=== PATIENT | female | born 1995 | race Two or more races ===

== ENCOUNTER 2016-09-01 12:50 | Emergency (ER) | payer MEDICAID ==
--- NOTE | 2016-09-01 13:25 | EDM.PDOC ---
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 Is 17 weeks . She is under the care of Dr. Nguyen at [facility] [address]. This appointment was August 13, 2016. She first noticed the discharge on Friday morning when it was pinkish in color. It has become thicker and darker brown over the past 2 days. She's had some discomfort to the sides of her low abdomen which she describes as a cramping sensation. No blood in urine or with bowel movements. No bright red vaginal bleeding. No nausea or vomiting, fever or chills. ] Review of systems: As per history of present illness and below otherwise all systems reviewed and negative. Past medical history: As per history of present illness and as reviewed below otherwise noncontributory. Surgical history: As per history of present illness and as reviewed below otherwise noncontributory. Social history: No reported history of drug or alcohol abuse. Family history: As per history of present illness and as reviewed below otherwise noncontributory. Physical exam: HEENT: Atraumatic, normocephalic, pupils reactive, negative for conjunctival pallor or scleral icterus, mucous membranes moist, throat clear, neck supple, nontender, trachea midline. Lungs: Clear to auscultation, breath sounds equal bilaterally, chest nontender. Heart: S1S2, regular, negative for clicks, rubs, or JVD. Abdomen: Soft, appears small. heart tones 155. Abdomen is nondistended or tender with palpation. Negative for masses or hepatosplenomegaly. Negative for costovertebral tenderness. Pelvis: Stable nontender. Genitourinary: Normal-appearing introitus. Os is closed upon speculum exam. Moderate amount of dark brown thick discharge present. No liset blood. Rectal: Deferred. Extremities: Atraumatic. Neurovascular unremarkable. Neuro: Awake, alert, oriented. Motor and sensory unremarkable throughout. Exam nonfocal. Diagnostics: [CBC, CMP, urinalysis] Impression: [Vaginal discharge during ] Plan: [Discussed with patient that cervical os is closed and there is no evidence of miscarriage. Phone OB tomorrow and follow his instructions regarding followup. All patient's questions are answered and concerns are addressed.] Definitive disposition and diagnosis as appropriate pending reevaluation and review of above. 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 Musculoskeletal History: Reports: None Neurological History: Reports: None Psychiatric History: Reports: None Endocrine/Metabolic History: Reports: None Hematologic History: Reports: None Immunologic History: Reports: None Oncologic (Cancer) History: Reports: None Dermatologic History: Reports: None - Infectious Disease History Infectious Disease History: Reports: None - Past Surgical History Head Surgeries/Procedures: Reports: None Social & Family History - Family History Family Medical History: Noncontributory - Tobacco Use Smoking Status *Q: Never Smoker Second Hand Smoke Exposure: No - Caffeine Use Caffeine Use: Reports: None - Recreational Drug Use Recreational Drug Use: No ED ROS GENERAL - Review of Systems Review Of Systems: ROS reveals no pertinent complaints other than HPI. ED EXAM - Physical Exam Exam: See Below Course - Vital Signs Last Recorded V/S: Last Vital Signs Temp 98.1 F 09/01/16 12:53 Pulse 82 09/01/16 14:50 Resp 16 09/01/16 14:50 BP 112/56 L 09/01/16 14:50 Pulse Ox 98 09/01/16 14:50 - Orders/Labs/Meds Labs: Laboratory Tests 09/01/16 09/01/16 09/01/16 Range/Units 13:23 13:23 14:05 WBC 10.60 (4.0-11.0) K/uL RBC 3.52 L (4.30-5.90) M/uL Hgb 11.7 L (12.0-16.0) g/dL Hct 33.2 L (36.0-46.0) % MCV 94.3 (80.0-98.0) fL MCH 33.2 H (27.0-32.0) pg MCHC 35.2 (31.0-37.0) g/dL RDW Std Deviation 45.0 (28.0-62.0) fl RDW Coeff of Kita 13 (11.0-15.0) % Plt Count 215 (150-400) K/uL MPV 9.60 (7.40-12.00) fL Neut % (Auto) 73.3 (48.0-80.0) % Lymph % (Auto) 20.1 (16.0-40.0) % Walsh % (Auto) 5.8 (0.0-15.0) % Eos % (Auto) 0.5 (0.0-7.0) % Baso % (Auto) 0.3 (0.0-1.5) % Neut # 7.8 H (1.4-5.7) K/uL Lymph # 2.1 (0.6-2.4) K/uL Walsh # 0.6 (0.0-0.8) K/uL Eos # 0.1 (0.0-0.7) K/uL Baso # 0.0 (0.0-0.1) K/uL Nucleated RBC % 0.0 /100WBC Nucleated RBCs # 0 K/uL Sodium 137 (136-146) mmol/L Potassium 3.4 L (3.5-5.1) mmol/L Chloride 105 (98-110) mmol/L Carbon Dioxide 20 L (21-31) mmol/L BUN 7 (6.0-23.0) mg/dL Creatinine 0.6 (0.6-1.5) mg/dL Est Cr Clr Drug Dosing 115.69 mL/min Estimated GFR (MDRD) > 60.0 ml/min Glucose 80 (60-110) mg/dL Calcium 8.5 L (8.8-10.8) mg/dL Total Bilirubin 0.4 (0.1-1.5) mg/dL AST 23 (5-40) IU/L ALT 16 (8-54) IU/L Alkaline Phosphatase 54 (40-150) Total Protein 6.7 (6.0-8.0) g/dL Albumin 3.7 (3.5-5.0) g/dL Globulin 3.0 (2.0-3.5) g/dL Albumin/Globulin Ratio 1.2 L (1.3-2.8) Urine Color YELLOW Urine Appearance SLT CLOUDY Urine pH 5.5 (5.0-8.0) Ur Specific [place] >= 1.030 (1.001-1.035) Urine Protein NEGATIVE (NEGATIVE) mg/dL Urine Glucose (UA) NEGATIVE (NEGATIVE) mg/dL Urine Ketones NEGATIVE (NEGATIVE) mg/dL Urine Occult Blood NEGATIVE (NEGATIVE) Urine Nitrite NEGATIVE (NEGATIVE) Urine Bilirubin NEGATIVE (NEGATIVE) Urine Urobilinogen 0.2 (<2.0) EU/dL Ur Leukocyte Esterase NEGATIVE (NEGATIVE) Urine RBC NONE SEEN (0-2/HPF) Urine WBC 0-2 (0-5/HPF) Ur Epithelial Cells MODERATE (NONE-FEW) Amorphous Sediment LIGHT (NEGATIVE) Urine Bacteria FEW (NEGATIVE) Urine Mucus MODERATE (NONE-MOD) Departure - Departure Time of Disposition: 14:40 Disposition: Home, Self-Care 01 Condition: good Clinical Impression: Vaginal discharge during in second trimester Instructions: Second Trimester of , [id number] Referrals: PCP,None [Primary Care Provider] - Forms: ED Department Discharge Additional Instructions: The following information is given to patients seen in the emergency department who are being discharged to home. This information is to outline your options for follow-up care. We provide all patients seen in our emergency department with a follow-up referral. The need for follow-up, as well as the timing and circumstances, are variable depending upon the specifics of your emergency department visit. If you don't have a primary care physician on staff, we will provide you with a referral. We always advise you to contact your personal physician following an emergency department visit to inform them of the circumstance of the visit and for follow-up with them and/or the need for any referrals to a consulting specialist. The emergency department will also refer you to a specialist when appropriate. This referral assures that you have the opportunity for follow-up care with a specialist. All of these measure are taken in an effort to provide you with optimal care, which includes your follow-up. Under all circumstances we always encourage you to contact your private physician who remains a resource for coordinating your care. When calling for follow-up care, please make the office aware that this follow-up is from your recent emergency room visit. If for any reason you are refused follow-up, please contact the [facility] emergency department at and asked to speak to the emergency department charge nurse. [facility] [address] [place] [id number] Followup with your records clerk via phone call tomorrow. Your labs came back normal today. Push fluids. Return to ER as needed as discussed.
[2016-09-01 13:51] LABS: CHLORIDE,CL 105 mmol/L (98-110); SODIUM,NA 137 mmol/L (136-146)
[2016-09-01 14:51] VITALS: BP 112/56
== END 2016-09-01 14:50 | disposition home or self-care (01) ==
LOC: MW.ED 12:50
DX: O46.92 Antepartum hemorrhage, unspecified, second trimester (principal); Z3A.17 17 weeks gestation of pregnancy
CPT/HCPCS: 36415; 80053; 81001; 85025; 99283

== ENCOUNTER 2020-06-12 11:58 | Day surgery (SDC) | payer SELFPAY ==
[~2020-06-12 11:58] MED LIST: Lactated Ringers 1,000 ML IV SCH; fentaNYL 250 MCG/5 ML SDV ONE
[2020-06-12] MEDS ORDERED: Propofol 200 MG/20 ML SDV ONE (12:18)
[2020-06-12] MEDS ORDERED: Midazolam 1 MG/ML 2 ML SDV ONE (12:18)
[2020-06-12] MEDS ORDERED: Glycopyrrolate 0.2 MG/ML SDV ONE (12:19)
[2020-06-12] MEDS ORDERED: Lidocaine 2% 5 ML SDV ONE (12:19)
[2020-06-12] MEDS ORDERED: Rocuronium Bromide 50 MG/5 ML Syringe ONE (12:19)
[2020-06-12] MEDS ORDERED: Ondansetron 4 MG/2 ML SDV ONE (12:19)
[2020-06-12] MEDS ORDERED: Ketorolac 30 MG/ML SDV ONE (12:19)
[2020-06-12] MEDS ORDERED: Acetaminophen 1,000 MG in Premix Bag 1 BAG IV PRN (13:23)
[2020-06-12] MEDS ORDERED: fentaNYL 100 MCG/2 ML SDV IVPUSH PRN (13:23)
--- NOTE | 2020-06-12 14:20 | PCM.OPNOTE ---
- General Post-Op/Procedure Note Date of Surgery/Procedure: 06/12/20 Operative Procedure(s): Hysteroscopy dilation and curettage with Myosure Findings: Anteverted uterus sounded to 9cm. Tissue adhered to anterior uterine wall at the fundus, consistent with products of conception. Small polyp left lateral within the lower uterine segment. Pre Op Diagnosis: Incomplete Post-Op Diagnosis: Incomplete Anesthesia Technique: General LMA Primary Surgeon: Irish Corbin Fluid Replacement, Intraop: 900 (1,100cc fluid deficit) EBL in mLs: 5 Condition: Good Free Text/Narrative:: Intake & Output 06/11/20 06/12/20 06/12/20 22:59 06:59 14:59 Output Total 5 Balance -5 Dictation #[id number]
--- NOTE | 2020-06-12 14:38 | PCM.PREANE ---
Preanesthetic Assessment - Anesthesia/Transfusion/Family Hx Anesthesia History: No Prior Anesthesia Family History of Anesthesia Reaction: No Transfusion History: No Prior Transfusion(s) Intubation History: Unknown - Review of Systems General: No Symptoms Pulmonary: No Symptoms Cardiovascular: No Symptoms Gastrointestinal: No Symptoms Neurological: No Symptoms Other: Reports: None - Physical Assessment Vital Signs: Last Vital Signs Temp 36.9 C 06/12/20 14:09 Pulse 86 06/12/20 14:30 Resp 13 06/12/20 14:30 BP 110/62 06/12/20 14:30 Pulse Ox 98 06/12/20 14:30 Height: 5 ft 2 in Weight: 52.163 kg ASA Class: 2 Mental Status: Alert & Oriented x3 Airway Class: Mallampati = 2 Dentition: Reports: Normal Dentition Thyro-Mental Finger Breadths: 3 Mouth Opening Finger Breadths: 3 ROM/Head Extension: Full Lungs: Clear to Auscultation, Normal Respiratory Effort Cardiovascular: Regular Rate, Regular Rhythm - Lab Values: Laboratory Last Values WBC 7.69 K/uL (4.0-11.0) 06/12/20 12:25 RBC 4.15 M/uL (4.30-5.90) L 06/12/20 12:25 Hgb 13.4 g/dL (12.0-16.0) 06/12/20 12:25 Hct 40.5 % (36.0-46.0) 06/12/20 12:25 MCV 97.6 fL (80.0-98.0) 06/12/20 12:25 MCH 32.3 pg (27.0-32.0) H 06/12/20 12:25 MCHC 33.1 g/dL (31.0-37.0) 06/12/20 12:25 RDW Std Deviation 42.5 fl (28.0-62.0) 06/12/20 12:25 RDW Coeff of Kita 12 % (11.0-15.0) 06/12/20 12:25 Plt Count 211 K/uL (150-400) 06/12/20 12:25 MPV 10.20 fL (7.40-12.00) 06/12/20 12:25 Nucleated RBC % 0.0 /100WBC 06/12/20 12:25 Nucleated RBCs # 0 K/uL 06/12/20 12:25 HCG, Qual NEGATIVE (NEG) 06/12/20 12:25 SARS-CoV-2 RNA (DEBORA) NEGATIVE (NEGATIVE) 06/12/20 10:40 - Allergies Allergies/Adverse Reactions: Allergies Allergy/AdvReac Type Severity Reaction Status Date / Time No Known Allergies Allergy Verified 06/09/20 13:18 - Blood Blood Available: No - Anesthesia Plan Pre-Op Medication Ordered: None - Acknowledgements Anesthesia Type Planned: General Anesthesia Pt an Appropriate Candidate for the Planned Anesthesia: Yes Alternatives and Risks of Anesthesia Discussed w Pt/Guardian: Yes Pt/Guardian Understands and Agrees with Anesthesia Plan: Yes PreAnesthesia Questionnaire - Past Health History Medical/Surgical History: Denies Medical/Surgical History HEENT History: Reports: Other (See Below) Other HEENT History: wears glasses/contacts Cardiovascular History: Reports: None Respiratory History: Reports: None Gastrointestinal History: Reports: None Genitourinary History: Reports: None 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) (retained products of conception, some uterine bleeding) Musculoskeletal History: Reports: None Neurological History: Reports: None Psychiatric History: Reports: None Endocrine/Metabolic History: Reports: None Hematologic History: Reports: None Immunologic History: Reports: None Oncologic (Cancer) History: Reports: None Dermatologic History: Reports: None - Infectious Disease History Infectious Disease History: Reports: None - Past Surgical History Head Surgeries/Procedures: Reports: None - SUBSTANCE USE Tobacco Use Status *Q: Never Tobacco User - HOME MEDS Home Medications: Home Meds Ascorbic Acid [Vitamin C] 1 tab PO DAILY 06/09/20 [History] Cholecalciferol (Vitamin D3) [Vitamin D3] 1 tab PO DAILY 06/09/20 [History] - CURRENT (IN HOUSE) MEDS Current Meds: Current Medications Fentanyl (Sublimaze) 50 mcg IVPUSH Q5M PRN PRN Reason: Pain Lactated Ringer's (Ringers, Lactated) 1,000 mls @ 125 mls/hr IV ASDIRECTED [facility] Last Admin: 06/12/20 12:30 Dose: 125 mls/hr Documented by: Acetaminophen 1,000 mg/ Premix 100 mls @ 400 mls/hr IV Q6H PRN PRN Reason: Pain Discontinued Medications Fentanyl (Sublimaze) Confirm Administered Dose 250 mcg .ROUTE .STK-MED ONE Stop: 06/12/20 11:14 Glycopyrrolate (Robinul) Confirm Administered Dose 0.8 mg .ROUTE .STK-MED ONE Stop: 06/12/20 12:20 Ketorolac Tromethamine (Toradol) Confirm Administered Dose 30 mg .ROUTE .STK-MED ONE Stop: 06/12/20 12:20 Lidocaine (Xylocaine-Mpf 2%) Confirm Administered Dose 5 ml .ROUTE .STK-MED ONE Stop: 06/12/20 12:20 Midazolam HCl (Versed 1 Mg/Ml) Confirm Administered Dose 2 mg .ROUTE .STK-MED ONE Stop: 06/12/20 12:19 Ondansetron HCl (Zofran) Confirm Administered Dose 4 mg .ROUTE .STK-MED ONE Stop: 06/12/20 12:20 Propofol (Diprivan 20 Ml) Confirm Administered Dose 200 mg .ROUTE .STK-MED ONE Stop: 06/12/20 12:19 Rocuronium [place] (Rocuronium [place]) Confirm Administered Dose 50 mg .ROUTE .STK-MED ONE Stop: 06/12/20 12:20
--- NOTE | 2020-06-12 14:39 | PCM.POSTAN ---
POST ANESTHESIA ASSESSMENT - MENTAL STATUS Mental Status: Alert, Oriented - VITAL SIGNS Vital Signs: Last Vital Signs Temp 36.9 C 06/12/20 14:09 Pulse 86 06/12/20 14:30 Resp 13 06/12/20 14:30 BP 110/62 06/12/20 14:30 Pulse Ox 98 06/12/20 14:30 - RESPIRATORY Respiratory Status: Respiratory Rate WNL, Airway Patent, O2 Saturation Stable - CARDIOVASCULAR CV Status: Pulse Rate WNL, Blood Pressure Stable - GASTROINTESTINAL GI Status: No Symptoms - PAIN Pain Score: 0 - POST OP HYDRATION Hydration Status: Adequate & Stable - OBSERVATIONS Free Text/Narrative:: No anesthesia problems
--- NOTE | 2020-06-12 15:23 | PCM48HPAN ---
Post Anesthesia Note - EVALUATION WITHIN 48HRS OF ANESTHETIC Vital Signs in Normal Range: Yes Patient Participated in Evaluation: Yes Respiratory Function Stable: Yes Airway Patent: Yes Cardiovascular Function Stable: Yes Hydration Status Stable: Yes Pain Control Satisfactory: Yes Nausea and Vomiting Control Satisfactory: Yes Mental Status Recovered: Yes Vital Signs: Last Vital Signs Temp 36.9 C 06/12/20 14:09 Pulse 86 06/12/20 14:30 Resp 13 06/12/20 14:30 BP 110/62 06/12/20 14:30 Pulse Ox 98 06/12/20 14:30 - COMMENTS/OBSERVATIONS Free Text/Narrative:: No anesthesia problems
[2020-06-12 15:26] VITALS: BP 104/61; PULSE 73
--- NOTE | 2020-06-13 10:50 | OR ---
SURGEON: KAYDEN FRAIRE MD DATE OF PROCEDURE: 06/12/2020 PREOPERATIVE DIAGNOSIS: Incomplete . POSTOPERATIVE DIAGNOSIS: Incomplete . PROCEDURE PERFORMED: Hysteroscopy, dilation and curettage with MyoSure device. ANESTHESIA: LMA. COMPLICATIONS: None. ESTIMATED BLOOD LOSS: 5 mL. IV FLUID: 900 mL of crystalloid. FLUID DEFICIT: 1100 mL. FINDINGS: Anteverted uterus sounding to 9 cm, tissue adhered to anterior uterine wall at fundus consistent with products of conception, small polyp located left lateral to the lower uterine segment. INDICATIONS: A 25-year-old female who presented to [facility] last week for persistent bleeding after elective medical performed at approximately 6-week gestation. An ultrasound was performed with possible polyp versus products of conception visualized. The patient returned to the clinic for sonohysterogram and tissues noted within the fundus of the endometrium. DESCRIPTION OF PROCEDURE: The patient was taken to the operating room where anesthesia was induced. She was prepped and draped in the dorsal lithotomy position. An open-sided Graves speculum was placed into the vagina to visualize the cervix. A single-tooth tenaculum was then used to grasp the cervix at 12 o'clock. The uterus was then sounded to 9 cm and serially dilated to 8 Hegar. The hysteroscope was then inserted through the cervix into the uterus, findings noted as above. The MyoSure was then introduced and the tissue was then removed from the anterior fundus and also the left lateral polyp in the lower uterine segment without difficulty. The hysteroscope and MyoSure were then removed and a sharp curettage performed with a medium curettage and specimen sent to pathology. A small amount of oozing was noted on the left tenaculum site. A 3-0 chromic was then used to reapproximate the laceration and hemostasis was noted. All instruments were then removed from the vagina. Hemostasis was again noted. Sponge, lap, and needle counts were correct x2. The patient tolerated the procedure well and was taken to recovery in stable condition. GLENIS / BIANKA /[id number]
== END 2020-06-12 15:00 | disposition home or self-care (01) ==
LOC: MW.SDS 11:58
PROVIDERS: ATTEND Obstetrics & Gynecology
DX: O03.4 Incomplete spontaneous abortion without complication (principal); Z01.812 Encounter for preprocedural laboratory examination; Z20.828 Contact with and (suspected) exposure to other viral communicable diseases
CPT/HCPCS: 36415; 58555; 59812; 84703; 85027; 87635; 88305; J1885; J2001; J2250; J2405; J2704; J3010; J7120; 00952; J3490; U0002